=== PATIENT | female | born 1940 | race Caucasian/White ===

== ENCOUNTER 2017-01-31 15:18 | Inpatient (IN) ==
[2017-01-31 17:45] LABS: MANUAL DIFF NEEDED? NO
[2017-01-31 17:52] LABS: BASO% 0.6 % (0.0-0.8); EOS# 0.16 X1000 (0.0-0.7); HEMATOCRIT 31.1 % (37.0-47.0); HEMOGLOBIN 11.1 g/dL (12.0-16.0); IMM GRAN# 0.14 X1000 (0.0-0.04); IMM GRAN% 2.6 % (0.0-0.5); LYMPH# 0.65 X1000 (1.2-3.4); LYMPH% 12.2 % (20.5-51.1); MCH 33.7 PG (27-31); MCHC 35.7 g/dL (33-37); MCV 94.5 FL (81-99); MONO# 0.63 X1000 (0.11-0.59); MONO% 11.9 % (1.7-9.3); MPV 8.8 FL (7.4-10.4); NEUT% 69.7 % (42.2-75.2); PLT 185 X1000 (130-400); RBC 3.29 XMIL (4.2-5.4)
[2017-01-31 18:15] LABS: AGAP 14; ALBUMIN 4.2 g/dL (3.5-5.0); ALKALINE PHOSPHATASE 77 U/L (32-104); AMYLASE 102 U/L (20-200); BUN 13 mg/dL (8-22); CALCIUM 9.2 mg/dL (8.8-10.2); CHLORIDE 75 mmol/L (98-107); COSMO 227; GOT 17 U/L (10-30); GPT 12 U/L (10-36); LIPASE 58 U/L (13-60); POTASSIUM 4.6 mmol/L (3.5-5.1); SODIUM 112 mmol/L (136-145); TCO2 23 mmol/L (25-35); TOTAL BILIRUBIN 0.42 mg/dL (0.20-1.00); TOTAL PROTEIN 6.6 g/dL (6.3-8.3)
[2017-01-31] MEDS ORDERED: ZOFRAN IV ONE (18:27)
[2017-01-31] MEDS ORDERED: NS 1,000 ML IV ONE (18:27)
[2017-01-31 18:57] LABS: URINE MICRO REVIEW NEEDED? NO; URINE SOURCE CLEAN CATCH
[2017-01-31 19:01] LABS: BILIRUBIN URINE NEGATIVE (NEGATIVE); BLOOD URINE NEGATIVE (NEGATIVE); GLUCOSE URINE NEGATIVE (NEGATIVE); LEUKOCYTES URINE LARGE (NEGATIVE); NITRITE URINE NEGATIVE (NEGATIVE); PH URINE 5.5; PROTEIN URINE NEGATIVE (NEGATIVE); TURBIDITY URINE HAZY (CLEAR); UROBILINOGEN URINE NORMAL (NORMAL)
[2017-01-31 19:03] LABS: UR EPITHELIAL CELLS <10 /HPF (<10); URINE BACTERIA 4+ /HPF; URINE CULTURE NEEDED? YES; URINE RBC <10 /HPF (<10); URINE WBC TNTC /HPF (<10)
[2017-01-31 19:05] LABS: COLOR GREEN
--- NOTE | 2017-01-31 19:20 | PROVIDER DOCUMENTATION ---
This chart was entered by Craig Harvey Scribe, acting as scribe for Romana Cummings PA. HPI-General Adult - General Chief Complaint: Nausea Stated Complaint: POSS DEHYDRATION Time Seen by Provider: 01/31/17 18:26 Source: patient Allergies/Adverse Reactions: Patient Allergies Allergy/AdvReac Type Severity Reaction Status Date / Time codeine Allergy Unknown Verified 01/31/17 15:31 hydrocodone Allergy Unknown Verified 01/31/17 15:31 Home Medications: Home Medication List Medication Instructions Recorded Confirmed Last Taken Type Esomeprazole [Nexium] 40 mg PO DAILY 01/31/17 01/31/17 Unknown History Folic Acid [Folic Acid] 1 mg PO DAILY 01/31/17 01/31/17 Unknown History Lisinopril [Lisinopril] 20 mg PO DAILY 01/31/17 01/31/17 Unknown History Meloxicam [Meloxicam] 15 mg PO DAILY 01/31/17 01/31/17 Unknown History Metoclopramide HCl [Metoclopramide 5 mg PO AC + HS 01/31/17 01/31/17 Unknown History HCl] Nitrofurantoin Monohyd/M-Cryst 100 mg PO BID 02/01/17 02/01/17 Unknown History [Macrobid 100 mg Capsule] - History of Present Illness -Gen Adult Nature of Presenting Problems: Pt is a 76 yof who presents to ER with CC of 3 week hx of decreased appetite, nausea, and generalized weakness. Pt also states that, 3 days ago, she became dizzy, fell, and hit her head. Pt denies any LOC, but does complain of generalized neck pain and nausea without vomiting. Pt also reports that she was constipated 3 days ago, took a laxative, and had 4 episodes of diarrhea yesterday. No further complaints. Location of Pain/Injury: reports: neck, generalized Pain Radiation: reports: no radiation Quality of Pain: reports: aching Severity: reports: mild Onset/Duration: reports: other (3 weeks; 3 days) Timing: reports: still present Associated Symptoms: reports: back/neck pain (neck pain), constipation, diarrhea , dizziness, loss of appetite, malaise, muscle aches, nausea, syncope (near- syncope), weakness. denies: chest pain, cough, diaphoresis, fever/chills, headaches, joint pain, sinus congestion/drainage, shortness of breath, swelling/ mass in abdomen, vomiting Similar Symptoms Previously?: No Recently seen or treated by another doctor?: No Review of Systems - Adult - REVIEW OF SYSTEMS - ADULT Constitutional: reports: fatiraphael. denies: chills, fever, night sweats, weight gain, weight loss Eyes: reports: no symptoms reported Ears, Nose, Mouth & Throat: reports: no symptoms reported Cardiovascular: denies: chest pain, edema, irregular heart rate, palpitations Respiratory: reports: no symptoms reported Gastrointestinal: reports: abdominal pain (generalized), constipation, diarrhea , nausea, poor appetite. denies: hematemesis, difficulty swallowing, frequent heartburn, rectal bleeding, vomiting Genitourinary: reports: no symptoms reported Musculoskeletal: reports: muscle aches, muscle weakness, neck pain. denies: bone pain, back pain, frequent leg cramps, joint pain, joint swelling Integumentary: reports: no symptoms reported Neurological: reports: no symptoms reported Psychiatric: reports: no symptoms reported Endocrine: reports: no symptoms reported Hematologic/Lymphatic: reports: no symptoms reported Allergic/Immunologic: reports: no symptoms reported All Other Systems: Reviewed and Negative Past History - Adult - PAST MEDICAL HISTORY-ADULT Review of Records: reports: Nursing Assessment Review, Medications Reviewed - IMMUNIZATION STATUS Childhood Immunizations: See Nurse Assessment Flu Vaccine: See Nurse Assessment Physical Exam-General - PHYSICAL EXAM-ADULT Initial Vital Signs Reviewed: Yes - CONSTITUTIONAL General Appearance: appears well, alert, mild distress, thin - EYES Eyes: PERRL/EOMI (decreased Extraoccular response), pink conjunctivae - NECK Neck: full range of motion, supple, normal inspection, other (mild generlized tenderness/soreness). negative: non-tender - RESPIRATORY Respiratory: chest non-tender, lungs clear, normal breath sounds, no pleuratic chest pain, no respiratory distress, no accessory muscle use. negative: respiratory distress, decreased breath sounds, accessory muscle use, wheezing - CARDIOVASCULAR Cardiovascular: normal peripheral pulses, regular rate, rhythm, systolic murmur . negative: bradycardia, tachycardia - GASTROINTESTINAL (ABDOMEN) Abdominal Exam: normal bowel sounds, soft, no organomegaly, no pulsatile mass, tenderness (generalized). negative: non tender - MUSCULOSKELETAL Back Exam: no CVA tenderness, no vertebral tenderness. negative: CVA tenderness , vertebral tenderness Extremity: normal range of motion, non-tender, normal gait, normal inspection, no pedal edema, no calf tenderness, normal capillary refill, pelvis stable. negative: deformity, erythema, inflammation, swelling, tenderness - NEUROLOGIC Neurologic: bookkeeping manager II-XII nml as tested, grossly normal, no motor/sensory deficits . negative: motor weakness, sensory deficit - PSYCHIATRIC Psych/Mental Status: normal mood/affect, normal thought content, normal thought process, oriented x 3 Progress - PLAN OF CARE/RESULTS Progress/Plan/Lab Results: Vital Signs - 8 hr 01/31/17 15:27 Temperature 98.7 F Pulse Rate 73 Respiratory Rate 18 Blood Pressure 157/90 O2 Sat by Pulse Oximetry 100 Laboratory Results - last 24 hr 01/31/17 01/31/17 17:44 17:44 WBC 5.31 RBC 3.29 L Hgb 11.1 L Hct 31.1 L MCV 94.5 MCH 33.7 H MCHC 35.7 RDW Std Deviation 12.3 Plt Count 185 MPV 8.8 Immature Gran % (Auto) 2.6 H Neut % (Auto) 69.7 Lymph % (Auto) 12.2 L Hand % (Auto) 11.9 H Eos % (Auto) 3.0 Baso % (Auto) 0.6 Immature Gran # (Auto) 0.14 H Neut # (Auto) 3.70 Lymph # (Auto) 0.65 L Hand # (Auto) 0.63 H Eos # (Auto) 0.16 Baso # (Auto) 0.03 Sodium 112 L* Potassium 4.6 Chloride 75 L Carbon Dioxide 23 L Anion Gap 14 BUN 13 Creatinine 0.8 Estimated GFR/1.73 m2 > 60 BUN/Creatinine Ratio 16 Glucose 97 Calculated Osmolality 227 Calcium 9.2 Total Bilirubin 0.42 AST 17 ALT 12 Alkaline Phosphatase 77 Total Protein 6.6 Albumin 4.2 Globulin 2.4 Albumin/Globulin Ratio 1.8 Amylase 102 Lipase 58 Orders Category Date Time Status Saline Loc DIRECTED Care 01/31/17 17:25 Active NPO Diet 01/31/17 17:25 Active FLAT/UPRIGHT ABD/1 VIEW CHEST [RAD] Stat Exams 01/31/17 18:44 Ordered HEAD/C-SPINE W/O CONTRAST [CT] Stat Exams 01/31/17 18:44 Ordered AMYLASE [CHEM] Stat Lab 01/31/17 17:44 Completed CBC WITH ELECTRONIC DIFF [HEME] Stat Lab 01/31/17 17:44 Completed COMPREHENSIVE METABOLIC PANEL [CHEM] Stat Lab 01/31/17 17:44 Completed FOLATE Stat Lab 01/31/17 18:45 Ordered LIPASE [CHEM] Stat Lab 01/31/17 17:44 Completed URINALYSIS W/POSS RFLX CULT-1 [URINALYSIS] Stat Lab 01/31/17 17:25 Uncollected VITAMIN B12 Stat Lab 01/31/17 18:45 Ordered 0.9% Sodium Chloride Inj [Ns] 1,000 ml Med 01/31/17 18:27 Active IV 100 mls/hr Ondansetron [Zofran] Med 01/31/17 18:27 Discontinued 4 mg IV NOW ONE Discussed pt with Dr. King, and he agreed with admission. Discussed admission with the pt and she agreed with tx plan. Result Diagrams: 02/01/17 06:00 02/01/17 06:00 - XRAY 1 XRAY Study: Chest, Abdomen XRAY Interpretation: No acute findings - CT/MRI 1 MRI Study: C-Spine, Head Impression: See EMR Report (1. Stable chronic changes but no evidence of acute intracranial pathology. 2. Advanced degenerative arthropathy throughout the cervical spine but no evidence of fracture or other definite acute C-spine injury. 3. Other incidental/nonacute findings detailed above. -per Dr. Miller) - CONSULTS/PCP/HOSPITALIST Notification #1 *Consult/PCP/Hospitalist*: Dr. Pastor Time Discussed: 19:58 Reason/Comments: UTI, hyponatremia Consult Disposition: Admit Departure - Departure Date of Disposition Decision: 01/31/17 Time of Disposition Decision: 19:57 DIAGNOSIS: Hyponatremia, DDD (degenerative disc disease), cervical, Arthropathy UTI (urinary tract infection) Qualifiers: Urinary tract infection type: acute cystitis Hematuria presence: without hematuria Qualified Code(s): N30.00 - Acute cystitis without hematuria Disposition: ADMITTED INPATIENT 09 Certified Medical Emergency: Emergent Condition: Stable - Critical Care Note This patient required my direct & personal management of CC.: No Attestation - Physician/ SANTOSH Attestation Patient care was provided by Advanced Practice Provider:: Yes Advanced Practice Provider:: Romana Cummings Advanced Practice Provider documentation review:: The Mid-level provider documentation, treatment plan and medical decision making was reviewed by the physician who agrees with all treatment and medical decision making by the MLP. This chart was documented by the indicated scribe, (Craig Harvey, Ayde) and accurately reflects the services I performed and decisions made by , Romana Cummings PA, as attested by the provider's signature.
--- NOTE | 2017-01-31 19:53 | Diag Imaging Result Doc PS360 ---
EXAM: HEAD/C-SPINE W/O CONTRAST INDICATION: fall with head injury, dizziness, no LOC COMPARISON: CT head dated 06/07/2015. No prior C-spine CT is available for comparison. FINDINGS: Head: There is mild patchy low attenuation in the periventricular and subcortical white matter suggesting mild microangiopathy, stable. There is no definite acute infarct given the limited sensitivity of CT versus MRI. There is no discrete intracranial mass, mass effect, or intracranial hemorrhage. The surrounding soft tissues are essentially unremarkable. The calvaria is intact. C-spine: There is extensive multilevel facet arthropathy throughout the cervical spine that there is also multilevel degenerative disc disease, most significant at C4-5, C5-6, and C6-7. At these levels, there is significant loss of disc space height. These degenerative changes are causing some degree of central canal and neuroforaminal narrowing at multiple levels. There is also mild anterolisthesis of C3 on C4 and C4 on C5 related to the degenerative changes. This appears chronic. There is no discrete fracture or intrinsic osseous lesion, otherwise. There is scarring at both lung apices. It is vaguely nodular at the right lung apex. The thyroid is heterogeneous. There is carotid atherosclerotic calcification. Surrounding soft tissues are essentially unremarkable, otherwise. IMPRESSION: 1.Stable chronic changes but no evidence of acute intracranial pathology. 2.Advanced degenerative arthropathy throughout the cervical spine but no evidence of fracture or other definite acute C-spine injury. 3.Other incidental/nonacute findings detailed above. Electronically signed by Familia Miller 01/31/2017 7:51 PM
[2017-01-31] MEDS: ROCEPHIN 1 GM/NS 1 GM/50 ML IVPB IV SCH (20:30)
--- NOTE | 2017-01-31 20:37 | Diag Imaging Result Doc PS360 ---
EXAM: FLAT/UPRIGHT ABD/1 VIEW CHEST INDICATION: nausea, constipation, diarrhea TECHNIQUE: 3 views COMPARISON: Chest radiograph dated 12/11/2014 FINDINGS: There are nonspecific bowel gas and stool patterns. There is no obstructive pattern. There is no evidence of large volume free abdominal gas. There is no evidence of organomegaly. The lungs are grossly clear. There is no discrete pleural fluid collection or pneumothorax. The cardiomediastinal silhouette and central vasculature are grossly unremarkable. IMPRESSION: Nonspecific abdomen. Electronically signed by Familia Miller 01/31/2017 8:34 PM
[2017-01-31] MEDS ORDERED: ZOFRAN IV PRN (22:50)
[2017-01-31] MEDS ORDERED: TYLENOL PO PRN (22:50)
[2017-01-31] MEDS: ULTRAM PO SCH (23:26)
[2017-01-31 23:44] LABS: MAGNESIUM 1.9 mg/dL (1.5-2.7)
[2017-02-01] MEDS ORDERED: NS 1,000 ML ONE (00:34)
[2017-02-01] MEDS ORDERED: NS 1,000 ML IV SCH (00:34)
--- NOTE | 2017-02-01 05:05 | HISTORY AND PHYSICAL ---
DATE AND TIME OF HISTORY AND PHYSICAL: 01/31/2017 at 20:30. PRIMARY CARE PROVIDER: Dr. Ranjeet Craven. CHIEF COMPLAINT: Nausea. HISTORY OF PRESENT ILLNESS: Ms Senior is a 76-year-old female who reports that for the past 3 weeks now that she has had nausea. She states that due to her nausea she has had a decreased appetite though has been drinking liquids normally. She denies any vomiting and denies any diarrhea though states that she did have approximately 3-4 loose stools a few days ago. She denies any hematochezia or melena. The patient does report that she has been drinking quite a bit of water with her medications. She drinks approximately 16 ounces of water every time she takes medicine and has been drinking water in between. The patient reports that she recently has increased her oral fluid intake due to a recent diagnosis of urinary tract infection and is currently taking Macrobid. She does report symptoms of dysuria as well as urinary frequency. She denies any abdominal pain. She does report that she has been weak over the past couple days and has had a few episodes where she felt dizzy with 1 episode where she felt as though she was going to pass out. She also reports that she did have a fall. The patient states that she got tripped up on her shoe and fell. She did hit her head though denies any loss of consciousness. She denies any other pain or injuries from her fall. She also does have a history of hypertension and takes lisinopril at this time. The patient has arthritis and takes Mobic for this and does get regular steroid injections in her back for arthritis pain. She denies any headache, chest pain, shortness of breath, pain , numbness or tingling in extremities. She denies fever, body aches or chills. Upon evaluation in ER, patient was found to be hyponatremic with a sodium of 112. She was also found to have a urinary tract infection with large leukocytes, white blood cells and bacteria present in her urine. At this time we will admit the patient for further treatment and evaluation of her hyponatremia as well as a urinary tract infection. They did perform a CT head and cervical spine in the ER which showed no acute intracranial pathology and no acute spinal abnormalities though there was arthropathy noted throughout the cervical spine. Also, given the patient's nausea there was a flat and upright abdomen with a 1-view chest performed which showed no acute findings as well. REVIEW OF SYSTEMS: A 12 point review of systems was conducted with the patient and all were negative except for pertinent positives mentioned in above HPI. PAST MEDICAL HISTORY: 1. Hypertension. 2. Anemia. 3. Arthritis. 4. Gastroesophageal reflux disease. 5. Hypertension. 6. The patient does have a history of delayed gastric emptying as well. PAST SURGICAL HISTORY: 1. Tubal ligation. 2. Varicose vein surgery in her left leg. 3. Left knee arthroscopy. 4. Left shoulder surgery. 5. Right shoulder surgery. 6. Bilateral cataract surgery. 7. Appendectomy. SOCIAL HISTORY: Patient denies any alcohol, tobacco or illicit drug use. She currently does live alone though does have daughters and son who regularly check on her and her son does live nearby. FAMILY HISTORY: Her mother has a history of diabetes mellitus, congestive heart failure. Her father has a history of anemia. She has 1 sister who has a history of diabetes mellitus and a 2nd sister who is at this time though had no other history except for possible depression. ALLERGIES: Patient reports allergies to codeine and hydrocodone. HOME MEDICATIONS: 1. Macrobid 100 mg p.o. b.i.d. 2. Reglan 5 mg p.o. a.c. and at bedtime. 3. Meloxicam 15 mg p.o. daily. 4. Nexium 40 mg p.o. daily. 5. Lisinopril 20 mg p.o. daily. 6. Folic acid 1 mg p.o. daily. DIAGNOSTIC DATA: Laboratory results: White blood cell count 5.31, hemoglobin 11.1, hematocrit 31.1, platelet count is 185,000. Sodium 112, potassium 4.6, chloride 75, bicarb 23, BUN 13, creatinine 0.8, glucose 97. Serum osmolality was 228. Calcium 9.2, magnesium 1.9. Liver function tests are within normal limits. CK 79, troponin was 0.035. Amylase is 102, lipase 58. Vitamin B12 1562, folate 29.3, and TSH 1.62. Urinalysis was obtained via clean catch, positive for trace ketones, large leukocytes, too numerous to count white blood cells, less than 10 epithelial cells, and 4+ bacteria. Urine osmolality was 95. Urine random sodium was 21. EKG showed sinus bradycardia at a rate of 59 with a QTc of 435. CT head and C-spine without contrast showed stable chronic changes but no evidence of acute intracranial pathology. Please refer to CT report. On the C-spine there was advanced degenerative arthropathy noted throughout the cervical spine but no evidence of fracture or other definite acute C-spine injury. Flat and upright abdomen with a 1-view chest showed nonspecific abdomen. The lungs were grossly clear. There is no discrete pleural fluid collection or pneumothorax noted. PHYSICAL EXAMINATION: VITAL SIGNS: Temperature 97.8 degrees, heart rate 59, respirations 16, blood pressure 128/71, oxygen saturation is 97% room air. GENERAL: Ms Senior is a very pleasant 76-year-old female who is resting comfortably in the ER stretcher. She was in no acute distress. She was awake, alert and able to answer all questions appropriately. HEENT: Head is atraumatic, normocephalic. Pupils are equal, round, reactive to light, were 3 mm bilaterally and brisk. Subconjunctivae were pink. Oral mucosa is moist. Oropharynx clear. NECK: Supple. Trachea midline. CARDIOVASCULAR: Patient has normal S1, S2. There is a 3/6 systolic murmur noted. The patient has a regular rate and rhythm. PULMONARY: Patient has symmetrical chest expansion bilaterally. Lung sounds are clear to auscultation in bilateral full li. ABDOMEN: Soft, nontender, nondistended. Bowel sounds are present in all 4 quadrants, were slightly hypoactive. EXTREMITIES: No cyanosis, clubbing, or edema noted. Pulse, motor and sensory are intact in all extremities. Pedal pulses are 3+ bilaterally. Capillary refill was less than 3. INTEGUMENTARY: The patient's skin is pink, warm, dry, and intact. No lesions or sores noted. NEUROLOGICAL: Patient is alert and oriented x4. Cranial nerves 2-12 are grossly intact. ASSESSMENT AND PLAN: 1. Hypotonic hyponatremia. This could hypovolemic versus euvolemic. The patient has had nausea and does report that she has had some decreased oral intake due to this though has not had any overt diarrhea or vomiting. She also does take an ERICKA inhibitor which could have contributed to this as well and does get steroid injections though she did report also that she has increased her oral fluid intake due to recent diagnosis of a urinary tract infection. We will hold her lisinopril at this time given her hyponatremia. We have placed orders for a cortisol level in the morning. Also, TSH was within normal limits. We will do q.4 hour sodium checks. We have placed her on normal saline infusion at 84 mL/h for 8 hours and we will re-evaluate her fluid infusion rate with the q.4 hour sodium checks. She will also be on q.4 hour neurological checks as well and seizure precautions and we will continue to follow closely. 2. Urinary tract infection. We have placed the patient on Rocephin 1 g IV q.24 hours. A urine culture has been placed and we are awaiting those results at this time. 3. Hypertension. At this time we have held her lisinopril. Her blood pressures have been within normal range with the last one being 111/59. We will continue to monitor this. 4. Anemia. her hemoglobin and hematocrit are stable. We will continue her folic acid. 5. Gastroesophageal reflux disease. We will continue her Nexium. 6. Arthritis. We have held the patient's Mobic at this time given that she has been very nauseated. We have ordered for her to have Tylenol and tramadol as needed for pain. The patient will be placed on the medical floor with telemetry. She will have vital signs q.6 hours. We will do strict intake and output. DVT prophylaxis provided with SCDs. She will be on a regular diet. We will repeat BMP and CBC in the morning. The patient has denied any chest pain though did report some dizziness for the past few days. Her troponin was 0.035, we will do a repeat troponin Q8H x 2. Further orders and recommendations pending hospital course, diagnostic studies and physician evaluation. Dictated by CHAZ Godwin for Antonio Pastor MD cc: MD Gerri Jamison MD [facility]
[2017-02-01 06:03] LABS: MANUAL DIFF NEEDED? NO
[2017-02-01 06:06] LABS: BASO% 0.8 % (0.0-0.8); EOS# 0.15 X1000 (0.0-0.7); EOS% 4.2 % (0.0-10.0); HEMATOCRIT 29.2 % (37.0-47.0); HEMOGLOBIN 10.2 g/dL (12.0-16.0); IMM GRAN% 2.8 % (0.0-0.5); LYMPH# 0.51 X1000 (1.2-3.4); LYMPH% 14.2 % (20.5-51.1); MCH 33.2 PG (27-31); MCHC 34.9 g/dL (33-37); MCV 95.1 FL (81-99); MONO# 0.54 X1000 (0.11-0.59); MONO% 15.1 % (1.7-9.3); MPV 8.8 FL (7.4-10.4); NEUT% 62.9 % (42.2-75.2); PLT 161 X1000 (130-400); RBC 3.07 XMIL (4.2-5.4)
[2017-02-01] MEDS: REGLAN PO SCH ×4 (06:07→21:31)
[2017-02-01] MEDS: PRILOSEC PO SCH (06:07)
[2017-02-01] MEDS: ULTRAM PO SCH ×2 (06:11→16:42)
[2017-02-01 07:14] LABS: AGAP 13; BUN 10 mg/dL (8-22); CALCIUM 8.6 mg/dL (8.8-10.2); CHLORIDE 89 mmol/L (98-107); COSMO 248; POTASSIUM 4.4 mmol/L (3.5-5.1); SODIUM 124 mmol/L (136-145); TCO2 22 mmol/L (25-35)
[2017-02-01] MEDS ORDERED: MOBIC PO SCH (09:00)
[2017-02-01] MEDS: FOLIC ACID PO SCH (09:45)
--- NOTE | 2017-02-01 11:22 | PROGRESS NOTE ---
DATE: 02/01/2017 SUBJECTIVE: This is a patient of Dr. Ranjeet Craven, admitted last night. This 76-year-old reports that for 3 weeks she has had nausea and due to her nausea she has had decreased appetite. Not been drinking liquids very well. Denied any vomited and denies any diarrhea, but states she did have approximately 3-4 loose stools a few days ago. She denies any hematochezia or melena. She has been having some burning with urination. They are treating her with Macrodantin. Recently the burning has come back. The patient reports she recently increased oral fluid intake due to a recent diagnosis of urinary tract infection. She also reports she did have a fall. States that she tripped on her shoe and she fell, hit her head, though denies any loss of consciousness. PAST MEDICAL HISTORY: Summary hypertension, anemia, arthritis, gastroesophageal reflux disease. The patient has a history of delayed gastric emptying as well or gastroparesis. PAST SURGICAL HISTORY: Tubal ligation, varicose vein surgery on her left leg, left knee arthroplasty, left shoulder surgery, right shoulder surgery, bilateral cataract surgery, and appendectomy. OBJECTIVE: General: She feels much better today. She did get some food down this morning. She wants to go home. Vital signs: Temperature 97.9 degrees, pulse 61, respirations 20, blood pressure 120/62. Height 5 feet 5 inches. HEENT: Pupils are equal. Lungs: Clear in all lung li. Cardiovascular: Regular rhythm and rate without murmur or S3. Abdomen: Soft. Skin: Warm and dry. LAB: From yesterday, white count 3,580, hematocrit 29, platelet count 161,000. Sodium was 112 when she came in. It is now up to 124. Potassium 4.4, chloride 89, BUN 10, creatinine 0.7. She had 4+ bacteria, too numerous to count white blood cells. Abdominal x-ray yesterday, nonspecific abdomen. No discrete pleural fluid collection or pneumothorax. Cardiomediastinal silhouette and central vascular grossly unremarkable. CT of her head, chronic stable changes. No evidence of acute intracranial pathology. Advanced degenerative arthropathy throughout the cervical spine but no evidence of fracture or other definite C-spine injury. HER CURRENT MEDICATIONS: She is on Reglan 5 mg p.o. q.a.c. and at bedtime, Prilosec 20 mg a day. We put her on ceftriaxone 1 g IV q.24 hours, Ultram 50 mg p.o. q.8 hours, and she is getting fluids; she was getting 100 mL an hour. ASSESSMENT AND PLAN: 1. Nausea, history of gastroparesis, and poor appetite, poor p.o. intake, volume depletion which has improved. Will start her back on normal saline running at 75 mL an hour. 2. Hyponatremia, hypovolemic, hyponatremic. Correcting fairly quickly. Will give her some more normal saline. She is eating. So, will keep her today and check her sodium again in the morning. 3. Gastroesophageal reflux, gastroparesis or delayed emptying has been reported in the past. She is on Reglan. 4. Hypertension. Blood pressure well controlled. 5. Mild anemia, normocytic, aware. Could check stools for blood. Note, renal function looks good. So, we will put her on fluids at normal saline at 75 mL an hour. Continue Rocephin. Check electrolytes and magnesium in the morning. We will check her T4 and TSH as well and cortisol, level B12, and folate. We will await to see if urine grows anything. She was on Macrodantin. cc: MD Gerir Deshpande MD
[2017-02-01] MEDS: NS 1,000 ML IV SCH (16:45)
[2017-02-01] MEDS: ROCEPHIN 1 GM/NS 1 GM/50 ML IVPB IV SCH (21:31)
--- NOTE | 2017-02-02 05:43 | EKG Report ---
Test Performed on : 01/31/2017 8:40:29 PM Test Reason : Hyponatremia Blood Pressure : / mmHG Vent. Rate : 059 BPM Atrial Rate : 059 BPM P-R Int : 166 ms QRS Dur : 090 ms QT Int : 440 ms P-R-T Axes : 057 065 063 degrees QTc Int : 435 ms Sinus bradycardia. Otherwise normal ECG When compared with ECG of 23-JAN-2010 05:45, No significant change was found Unconfirmed Result
[2017-02-02] MEDS: PRILOSEC PO SCH (06:19)
[2017-02-02] MEDS: NS 1,000 ML IV SCH (06:20)
[2017-02-02] MEDS: ULTRAM PO SCH (06:20)
[2017-02-02 07:24] VITALS: BP 139/65
[2017-02-02] MEDS: FOLIC ACID PO SCH (09:03)
[2017-02-02] MEDS: REGLAN PO SCH ×2 (09:03→11:36)
[2017-02-02 09:06] LABS: HEMATOCRIT 34.2 % (37.0-47.0); HEMOGLOBIN 11.7 g/dL (12.0-16.0); MCH 33.3 PG (27-31); MCHC 34.2 g/dL (33-37); MCV 97.4 FL (81-99); MPV 8.6 FL (7.4-10.4); RBC 3.51 XMIL (4.2-5.4)
[2017-02-02 09:40] LABS: AGAP 14; BUN 8 mg/dL (8-22); CALCIUM 9.2 mg/dL (8.8-10.2); CHLORIDE 94 mmol/L (98-107); COSMO 259; POTASSIUM 4.1 mmol/L (3.5-5.1); SODIUM 130 mmol/L (136-145); TCO2 22 mmol/L (25-35)
[2017-02-02 09:58] LABS: FREE T4 1.36 ng/dL (0.93-1.70)
[2017-02-02] MEDS ORDERED: SEPTRA DS PO SCH (21:00)
[2017-02-03] MEDS ORDERED: COZAAR PO SCH (09:00)
--- NOTE | 2017-02-03 09:55 | DISCHARGE SUMMARY ---
ADMISSION DATE: 01/31/2017 DISCHARGE DATE: 02/02/2017 DISCHARGE DIAGNOSES: 1. Volume depletion associated with hyponatremia. 2. Volume depletion secondary intractable nausea and vomiting. 3. Gastroparesis. 4. Pernicious anemia. 5. Essential hypertension. 6. Gastroesophageal reflux disease. DISCHARGE INSTRUCTIONS: 1. Return to clinic in 1 week to see me, Dr. Ranjeet Craven, in anticipation of a transition of care visit. 2. Activity as tolerated. 3. Healthy heart diet. MEDICATIONS: 1. Folic acid 1 mg daily. 2. Reglan 5 mg before meals and at bedtime. 3. Nexium 40 mg daily. 4. Ultram 50 mg q. 8 hours p.r.n. pain. 5. Losartan 25 mg daily. 6. Septra DS 1 p.o. b.i.d. for 10 days. DISCHARGE EXAMINATION: General: This is a well-developed, well-nourished, 76-year-old, lady in no apparent distress. She is afebrile. Vital Signs are stable. CV regular rate and rhythm. Lungs clear. Abdomen soft, nontender, with active bowel sounds. HOSPITAL COURSE: Mrs. Senior presented to the ER with a 3-week history of persistent nausea, vomiting, and diminished appetite. She had been drinking large amounts of water. Her serum sodium was low. Her serum sodium was noted to be 118. As she was volume depleted, we did not feel that she did not have SIADH. Her urine osmolality was 95. A random urine sodium was 21. We aggressively rehydrated her with normal saline, and her serum sodium normalized to 30 at the time of discharge. There was some concern that lisinopril could be associated with hyponatremia. It was discontinued. We began losartan 25 mg daily. She has a history of gastroparesis. She had not been taking Reglan at home. We resumed the Reglan. The nausea improved significantly. She was tolerating a bland diet at the time of discharge without nausea, vomiting, or abdominal pain. She denied any reflux, sour brash, dysphagia, melena, or hematochezia. She does have a longstanding history of hypertension. Her blood pressure has generally been well controlled. Because of the association with ERICKA inhibitors and hyponatremia, we will we switched her to losartan 25 mg daily. I will recheck her blood pressure next week. She was with complaint of dysuria, increased urinary frequency, and low back pain. A urinalysis was abnormal. The patient was started on IV antibiotics. Urine cultures grew out Klebsiella. We will treat her as an outpatient with a 10 day course of Bactrim DS 1 p.o. b.i.d. Having reached maximum hospital benefit, the patient was discharged in stable condition. cc: Gerri Craven MD
== END 2017-02-02 14:15 | disposition home or self-care (01) ==
LOC: ED 15:18 → 4N 22:27 → SUATTDRO 22:27 → 4N 22:49
PROVIDERS: ADMIT Internal Medicine; ATTEND Internal Medicine